=== PATIENT | male | born 1965 | race Caucasian/White ===

== ENCOUNTER 2017-09-10 09:39 | Emergency (ER) | payer MEDICARE ==
[2017-09-10 10:21] VITALS: BP 107/74
--- NOTE | 2017-09-10 10:46 | UC ---
Elbow Pain - HPI Summary HPI Summary: Pt c/o sudden onset of left elbow pain, swelling and serous discharge from left elbow. Pt had left elbow surgery in 2013 with ORIF. - History of Current Complaint Chief Complaint: UCUpperExtremity Stated Complaint: LEFT ELBOW DRAINAGE AND PAIN Time Seen by Provider: 09/10/17 10:12 Hx Obtained From: Patient Onset/Duration: Days Severity Initially: Mild Severity Currently: Moderate Pain Intensity: 8 Location Of Pain: Is Discrete @ - left elbow Character: Dull, Aching Aggravating Factor(s): Movement Alleviating Factor(s): Rest Associated Signs And Symptoms: Positive: Swelling, Redness - Allergies/Home Medications Allergies/Adverse Reactions: Allergies Allergy/AdvReac Type Severity Reaction Status Date / Time No Known Allergies Allergy Verified 09/10/17 10:21 Home Medications: Home Medications Aspirin [Aspirin Childrens 81 MG] 81 mg PO DAILY 09/10/17 [History Confirmed ] Cholecalciferol TAB* [Vitamin D TAB*] 1,000 unit PO DAILY 09/10/17 [History Confirmed 09/10/17] [place]-3 Acid Ethyl Esters [Lovaza] 1 cap PO DAILY 09/10/17 [History Confirmed ] Pravastatin (NF) [Pravachol (NF)] 10 mg PO 1700 09/10/17 [History Confirmed ] PMH/Surg Hx/FS Hx/Imm Hx Previously Healthy: Yes Endocrine History: Dyslipidemia - Surgical History Surgical History: Yes Surgery Procedure, Year, and Place: IVC filter placement. ORIF left forearm - Family History Known Family History: Positive: Cardiac Disease - Social History Lives: With Family Alcohol Use: Occasionally Substance Use Type: None Smoking Status (MU): Heavy Every Day Tobacco Smoker Amount Used/How Often: 10 cigs daily x 40 years Have You Smoked in the Last Year: Yes Review of Systems Constitutional: Negative Skin: Other - erythema Eyes: Negative ENT: Negative Respiratory: Negative Cardiovascular: Negative Gastrointestinal: Negative Genitourinary: Negative Motor: Weakness - left side s/p CVA Neurovascular: Negative Musculoskeletal: Decreased ROM - left upper extremity, Myalgia Neurological: Negative Psychological: Negative Is Patient Immunocompromised?: No All Other Systems Reviewed And Are Negative: Yes Physical Exam Triage Information Reviewed: Yes Appearance: Other: - unkempt Vital Signs: Initial Vital Signs Temp 99.0 F 09/10/17 10:13 Pulse 79 09/10/17 10:13 Resp 14 09/10/17 10:13 BP 107/74 09/10/17 10:13 Pulse Ox 98 09/10/17 10:13 Vital Signs Reviewed: Yes Eye Exam: Normal ENT Exam: Normal Neck exam: Normal Respiratory: Positive: No respiratory distress Musculoskeletal: Positive: ROM Limited @ - left upper extremity, left elbow mild erythema and swelling, with small, opening, draining serous fludi Neurological Exam: Normal Psychological Exam: Normal Skin Exam: Other - lef telbow erythema Diagnostics - Radiology No standard instances Radiology Interpretation Completed By: Radiologist - IMPRESSION: STATUS POST INTERNAL FIXATION OF THE PROXIMAL ULNA. Elbow Pain Course/Dx - Differential Dx/Diagnosis Differential Diagnosis/HQI/PQRI: Bursitis, Infection Provider Diagnoses: bursitis left elbow Discharge - Sign-Out/Discharge Documenting (check all that apply): Discharge/Admit/Transfer - Discharge Plan Condition: Stable Disposition: HOME Prescriptions: Sulfamethox/Trimethoprim DS* [Bactrim DS 800/160 TAB*] 1 tab PO Q12H #20 tab Patient Education Materials: Elbow Bursitis (ED) Referrals: Curtis TRIMBLE,Robb [Primary Care Provider] - Cliff Mondragon [Doctor of Osteopathy] - As Soon As Possible - Billing Disposition and Condition Condition: STABLE Disposition: HOME
--- NOTE | 2017-09-10 11:02 | RAD ---
HISTORY: Left elbow pain, trauma COMPARISONS: None VIEWS: 5, Frontal, lateral, and oblique views of the left elbow FINDINGS: BONE DENSITY: Normal. BONES: The patient is status post internal fixation of the proximal ulna. There is no hardware failure or osteolysis. 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 There is no posterior supracondylar fat pad to suggest a joint effusion. ALIGNMENT: There is no dislocation. SOFT TISSUES: Unremarkable. OTHER FINDINGS: None. IMPRESSION: STATUS POST INTERNAL FIXATION OF THE PROXIMAL ULNA.
--- NOTE | 2017-09-12 07:20 | UC ---
- Progress Note Progress Note: Pt with no oranisms on on micro no growth day #1 on bactrim await final no change Ljj 09/12/2017 Discharge - Sign-Out/Discharge Documenting (check all that apply): Post-Discharge Follow Up - Discharge Plan Condition: Stable Disposition: HOME Prescriptions: Sulfamethox/Trimethoprim DS* [Bactrim DS 800/160 TAB*] 1 tab PO Q12H #20 tab Patient Education Materials: Elbow Bursitis (ED) Referrals: Curtis TRIMBLE,Robb [Primary Care Provider] - Cliff Mondragon [Doctor of Osteopathy] - As Soon As Possible - Billing Disposition and Condition Condition: STABLE Disposition: HOME
== END 2017-09-10 11:20 | disposition home or self-care (01) ==
LOC: UCCORT 09:39
DX: M71.9 Bursopathy, unspecified (principal); F17.210 Nicotine dependence, cigarettes, uncomplicated
CPT/HCPCS: 87070; 87205; 99213; G0463

== ENCOUNTER 2018-09-28 10:07 | Emergency (ER) | payer MEDICARE ==
--- OUTSIDE RECORDS SUMMARY | 2018-09-28 10:17 | XMS REPORT | Continuity of Care Document ---
:1965 External Reference #:[id number] Author Name Praveen Foster MD Address [address] [place] [address] [place] [address] Care Team Providers Name Role Phone Praveen Foster MD Care Team Information Customer Liaison Unavailable Praveen Foster MD Primary Care Physician Unavailable Payers Date Identification Numbers Payment Provider Subscriber Policy Number: [id number] [employer] Adonay Paula PayID: [id number] [address] [place] [address] Advance Directives Description No Information Available Problems Active Problems Provider Date Adult health examination Robb Acevedo M.D. Onset: 08/11/2016 Hyperlipidemia Robb Acevedo M.D. Onset: 08/11/2016 Type 2 diabetes mellitus Robb Acevedo M.D. Onset: 08/11/2016 Cerebrovascular disease Robb Acevedo M.D. Onset: 08/11/2016 Screening for malignant neoplasm of Robb Acevedo M.D. Onset: 08/11/2016 prostate Elevated blood-pressure reading Robb Acevedo M.D. Onset: 08/11/2016 without diagnosis of hypertension Electrocardiogram abnormal Robb Acevedo M.D. Onset: 08/11/2016 Encounter for screening for Robb Acevedo M.D. Onset: 08/11/2016 nutritional disorder Taking medication Robb Acevedo M.D. Onset: 10/02/2016 Contracture of joint of hand Robb Acevedo M.D. Onset: 10/02/2016 Elbow joint effusion Robb Acevedo M.D. Onset: 10/02/2016 Vitamin D deficiency Robb Acevedo M.D. Onset: 10/02/2016 Late effect of fracture of upper Carol Ann Coronado PA Onset: 10/06/2016 extremities Olecranon bursitis Carol Ann Coronado PA Onset: 10/06/2016 Carotid artery occlusion Robb Acevedo M.D. Onset: 10/27/2016 Hemiplegia of nondominant side as late Robb Acevedo M.D. Onset: 10/27/2016 effect of cerebrovascular disease Encounter for adjustment and Robb Acevedo M.D. Onset: 06/18/2017 management of other implanted devices Arthralgia of the upper arm Robb Acevedo M.D. Onset: 09/28/2017 Periostitis of forearm Kim Martínez MD Onset: 11/16/2017 Tobacco user Kim Martínez MD Onset: 11/16/2017 Encounter for other preprocedural Robb Acevedo M.D. Onset: 01/22/2018 examination Preoperative cardiovascular Ed Tijerina M.D., Onset: 02/05/2018 examination [facility] Peripheral vascular disease Ed Tijerina M.D., Onset: 02/05/2018 [facility] Prediabetes Praveen Foster MD Onset: 06/01/2018 Family History Date Family Member(s) Observation Comments Father due to Congestive Heart () - age 82 Failure Mother due to Congestive Heart () - age 64 Failure Social History Type Date Description Comments Sex Unknown Lives With Sister Diet Patient is on a low fat diet Occupation Unemployed Work Status Not Currently Working Hand Dominance Right-handed Tobacco Use Start: Unknown currently smokes 1/2 Pack Daily ETOH Use Currently consumes alcohol socially Recreational Drug Use Denies Drug Use Tobacco Use Start: Unknown Heavy tobacco smoker (more than 10 cigarettes/day) Smoking Status Reviewed: 09/01/18 Heavy tobacco smoker (more than 10 cigarettes/day) Allergies, Adverse Reactions, Alerts Description No Known Drug Allergies Medications Active Medications SIG Qnty Indications Ordering Date Provider Atorvastatin Calcium 1 tab by mouth 90tabs E78.5 Praveen Foster MD 2018 every day as 40mg Tablets directed Vascepa 2 caps by mouth 120caps Praveen Foster MD 06/02/2018 1gm Capsules twice a day before meals Aspir-Low 1 by mouth every 90tabs Robb Acevedo, 10/02/2016 81mg Tablets day M.Bonilla AVILES Vitamin D 1 tab by mouth Unknown (Ergocalciferol) once daily 2000Unit Capsules Tylenol 8 Hour one by mouth Unknown 650mg every 6 hours as Tablets ER needed pain History Medications Keflex 1 by mouth four 30capKim Escobar, 12/09/2017 - 500mg Capsules times a day 01/22/2018 Cephalexin 1 tab by mouth 40tabs Ed Tijerina 11/16/2017 - 500mg every 6 hours M., M.D., [facility] 06/01/2018 Tablet MDD 4 Keflex 1 by mouth 4 28caps Kim Martínez, 10/06/2017 - 500mg Capsules times a day 11/16/2017 Naproxen Sodium ER 1 tab by mouth 20tabs M25.522 Robb Acevedo, 2017 - twice a day for M.D. 10/06/2017 375mg Tablets ER 10 days 24HR Vascepa 1 by mouth 60caps Praveen Foster MD 03/18/2017 - 1gm Capsules twice a day 06/02/2018 Pravastatin Sodium 1 by mouth 90tabs Robb Acevedo, 10/02/2016 - every day M.D. 01/13/2017 20mg Tablets Vascepa 1 capsule by 180Robb Silevira, 10/02/2016 - 0.5gm mouth twice a M.D. 03/18/2017 Capsules day No Active Unknown 08/11/2016 - Medications 10/02/2016 Pravastatin Sodium take 1 tablet 90tabs E78.5 Praveen Foster MD - daily 09/01/2018 20mg Tablets Naproxen Sodium ER 1 tab by mouth 20tabs [place], - twice a day for MS Awilda, 09/01/2018 375mg Tablets ER 10 days [employer]-C, CNM 24HR Immunizations CPT Code Status Date Vaccine Lot # [id number] Given 01/22/2018 Influenza Virus Vaccine, Quadrivalent, 36 Mos+, [id number] Vital Signs Date Vital Result Comment 09/01/2018 9:17am BP Systolic 112 mmHg BP Diastolic 76 mmHg Heart Rate 83 /min Respiratory Rate 18 /min Height 73 inches 6'1" Weight 178.00 lb BMI (Body Mass Index) 23.5 kg/m2 BSA (Body Surface Area) 2.05 m2 [place] body weight in kilograms 83 kg O2 % BldC Oximetry 98 % Ra 06/01/2018 11:02am BP Systolic 114 mmHg BP Diastolic 70 mmHg Heart Rate 65 /min Respiratory Rate 18 /min Height 73 inches 6'1" Weight 188.12 lb BMI (Body Mass Index) 24.8 kg/m2 BSA (Body Surface Area) 2.10 m2 [place] body weight in kilograms 83 kg O2 % BldC Oximetry 97 % Ra 04/07/2018 9:22am BP Systolic Sitting Right Arm 137 mmHg BP Diastolic Sitting Right Arm 93 mmHg Body Temperature 98.3 F Heart Rate 78 /min Respiratory Rate 16 /min Height 73 inches 6'1" Weight 183.00 lb BMI (Body Mass Index) 24.1 kg/m2 BSA (Body Surface Area) 2.07 m2 [place] body weight in kilograms 83 kg O2 % BldC Oximetry 95 % 02/05/2018 1:51pm BP Systolic Sitting Left Arm 136 mmHg BP Diastolic Sitting Left Arm 78 mmHg Heart Rate 71 /min Respiratory Rate 20 /min Weight 183.00 lb O2 % BldC Oximetry 97 % room air 01/22/2018 11:55am BP Systolic 122 mmHg BP Diastolic 79 mmHg Body Temperature 98.0 F Heart Rate 82 /min Respiratory Rate 20 /min Weight 187.00 lb O2 % BldC Oximetry 95 % Ra Pain Level 6 left arm 11/25/2017 1:37pm BP Systolic Sitting Right Arm 135 mmHg BP Diastolic Sitting Right Arm 91 mmHg Body Temperature 97.9 F Heart Rate 77 /min Height 73 inches 6'1" Weight 180.00 lb BMI (Body Mass Index) 23.7 kg/m2 BSA (Body Surface Area) 2.06 m2 [place] body weight in kilograms 83 kg O2 % BldC Oximetry 92 % 11/16/2017 2:05pm BP Systolic Sitting Left Arm 123 mmHg BP Diastolic Sitting Left Arm 79 mmHg Body Temperature 99.0 F Heart Rate 87 /min Respiratory Rate 16 /min Height 73 inches 6'1" Weight 182.12 lb BMI (Body Mass Index) 24.0 kg/m2 BSA (Body Surface Area) 2.07 m2 [place] body weight in kilograms 83 kg O2 % BldC Oximetry 97 % Ra Pain Level 6 LT elbow 10/06/2017 2:41pm BP Systolic Sitting Right Arm 125 mmHg BP Diastolic Sitting Right Arm 85 mmHg Body Temperature 98.4 F Heart Rate 76 /min Respiratory Rate 16 /min Height 73 inches 6'1" Weight 184.00 lb BMI (Body Mass Index) 24.3 kg/m2 BSA (Body Surface Area) 2.08 m2 [place] body weight in kilograms 83 kg O2 % BldC Oximetry 98 % 09/28/2017 11:35am BP Systolic 150 mmHg BP Diastolic 99 mmHg Body Temperature 96.6 F Heart Rate 73 /min Respiratory Rate 20 /min Height 73 inches 6'1" Weight 181.06 lb BMI (Body Mass Index) 23.9 kg/m2 BSA (Body Surface Area) 2.06 m2 [place] body weight in kilograms 83 kg O2 % BldC Oximetry 94 % 06/18/2017 9:21am BP Systolic Sitting Right Arm 107 mmHg BP Diastolic Sitting Right Arm 78 mmHg Heart Rate 97 /min Respiratory Rate 90 /min Height 73 inches 6'1" Weight 186.00 lb BMI (Body Mass Index) 24.5 kg/m2 BSA (Body Surface Area) 2.09 m2 [place] body weight in kilograms 83 kg 03/18/2017 2:19pm BP Systolic 139 mmHg BP Diastolic 94 mmHg Heart Rate 80 /min Respiratory Rate 12 /min Height 73 inches 6'1" Weight 179.50 lb BMI (Body Mass Index) 23.7 kg/m2 BSA (Body Surface Area) 2.05 m2 [place] body weight in kilograms 83 kg O2 % BldC Oximetry 95 % 01/13/2017 11:18am BP Systolic 135 mmHg BP Diastolic 87 mmHg Heart Rate 78 /min Respiratory Rate 16 /min Height 73 inches 6'1" Weight 170.38 lb BMI (Body Mass Index) 22.5 kg/m2 BSA (Body Surface Area) 2.01 m2 [place] body weight in kilograms 83 kg O2 % BldC Oximetry 93 % 11/06/2016 11:34am BP Systolic 139 mmHg BP Diastolic 95 mmHg Heart Rate 72 /min Respiratory Rate 12 /min Height 73 inches 6'1" Weight 176.00 lb BMI (Body Mass Index) 23.2 kg/m2 BSA (Body Surface Area) 2.04 m2 [place] body weight in kilograms 83 kg O2 % BldC Oximetry 95 % 10/27/2016 9:23am BP Systolic 129 mmHg BP Diastolic 83 mmHg Heart Rate 92 /min Height 73 inches 6'1" Weight 175.00 lb BMI (Body Mass Index) 23.1 kg/m2 BSA (Body Surface Area) 2.03 m2 [place] body weight in kilograms 83 kg 10/06/2016 9:56am Heart Rate 98 /min Height 73 inches 6'1" Weight 179.00 lb BMI (Body Mass Index) 23.6 kg/m2 BSA (Body Surface Area) 2.05 m2 [place] body weight in kilograms 83 kg 10/02/2016 9:46am BP Systolic 126 mmHg BP Diastolic 82 mmHg Heart Rate 90 /min Respiratory Rate 16 /min Height 72.5 inches 6'0.50" Weight 178.00 lb BMI (Body Mass Index) 23.8 kg/m2 BSA (Body Surface Area) 2.04 m2 [place] body weight in kilograms 82 kg O2 % BldC Oximetry 97 % 08/11/2016 1:00pm BP Systolic 149 mmHg BP Diastolic 99 mmHg Heart Rate 84 /min Respiratory Rate 16 /min Height 72.5 inches 6'0.50" Weight 182.00 lb BMI (Body Mass Index) 24.3 kg/m2 BSA (Body Surface Area) 2.06 m2 [place] body weight in kilograms 82 kg O2 % BldC Oximetry 97 % Results Test Date Facility Test Result H/L Range Note T7/TSH 06/01/[address] T3 Uptake 30 % Low 31-39 1 [address] [place] [address] [phone] Thyroxine (T4) 7.3 g/dL N 4.7-13.3 T7 2.19 g/dL Low 5.0-12.0 Thyroid Stim Hormone 0.95 uIU/mL N 0.30-4.20 Glycohemoglobin A1c 06/01/[address] Glycohemoglobin 6.1 % N 4.2-6.3 2 4077 [facility] (A1c) [place], [place] [id number] [phone] eAG 128 mg/dL LDL Cholesterol 06/01/[address] Cholesterol 207 mg/dL High < 200 3 Profile [address] [place], [place] [id number] [phone] Triglycerides 431 mg/dL High <150 4 HDL Cholesterol 30 mg/dL Low >40 5 LDL-Cholesterol TNP mg/dL < 100 6 Comprehensive Metabolic 06/01/[address] [facility] [address] Glucose 103 mg/dL N 74-106 Panel [address] [place] [address] [phone] BUN 18 mg/dL N 7-18 Creatinine 1.3 mg/dL N 0.6-1.3 Glom Filtration Rate, Estimate >60 mL/min >60 If >60 mL/min >60 7 BUN/Creat 13.8 ratio Sodium 138 mmol/L N 136-145 Potassium 4.1 mmol/L N 3.5-5.1 Chloride 111 mmol/L High 98-107 Carbon Dioxide 24 mmol/L N 21-32 Anion Gap 3 mEq/L Low 8-16 Calcium 8.7 mg/dL N 8.5-10.1 Total Protein 8.0 g/dL N 6.4-8.2 Albumin 3.9 g/dL N 3.4-5.0 Globulin 4.1 g/dL N 1.9-4.3 Alb/Glob 1.0 ratio Bilirubin,Total 0.4 mg/dL N 0.2-1.0 Sgot/Ast 17 U/L N 15-37 SGPT/Alt 28 U/L N 12-78 Alkaline Phosphatase 66 U/L N 45-117 CBC W/Automated Diff 06/01/[address] White Blood 7.7 K/uL N 3.4-10.5 [address] [facility] [place] [address] [phone] Red Blood Count 5.39 M/uL N 4.20-5.80 Hemoglobin 16.8 gm/dL N 12.8-17.0 Hematocrit 49.7 % High 38.0-48.0 Mean Cell Volume 92.2 fl N 80.0-96.0 Mean Corpuscular HGB 31.2 pg N 27.0-33.0 Mean Corpuscular HGB Conc 33.8 g/dL N 31.7-36.0 Platelet Count 220 K/uL N 155-360 Red Cell Distri Width SD 43.3 fl N 36-51 Red Cell Distri Width %CV 12.9 % N 11.6-15.8 Mean Platelet Volume 10.3 fL N 6.6-10.6 Neut% 58.3 % N 33.0-73.0 Lymph % 30.4 % N 20.0-42.0 [place] % 7.3 % N 0.0-10.0 Eo% 3.5 % N 0.0-6.6 Bas% 0.5 % N 0.0-1.1 Neut# 4.50 K/uL N 1.8-7.0 Lymph # 2.35 K/uL N 1.0-4.0 [place] # 0.56 K/uL N 0.0-0.8 Eos # 0.27 K/uL N 0.0-0.5 Baso # 0.04 K/uL N 0.0-0.1 Basic Metabolic Panel 04/16/2018 [facility] Glucose 93 mg/dL N 74-[address] [place] [address] [phone] BUN 15 mg/dL N 7-18 Creatinine 1.2 mg/dL N 0.6-1.3 Glom Filtration Rate, Estimate >60 mL/min >60 If >60 mL/min >60 9 BUN/Creat 12.5 ratio Sodium 139 mmol/L N 136-145 Potassium 3.8 mmol/L N 3.5-5.1 Chloride 107 mmol/L N 98-107 Carbon Dioxide 23 mmol/L N 21-32 Anion Gap 9 mEq/L N 8-16 Calcium 9.1 mg/dL N 8.5-10.1 CBC W/Automated Diff 04/16/2018 [facility] White Blood 8.1 K/uL N 3.4-10.[address] [place] [address] [phone] Red Blood Count 5.46 M/uL N 4.20-5.80 Hemoglobin 17.4 gm/dL High 12.8-17.0 Hematocrit 50.7 % High 38.0-48.0 Mean Cell Volume 92.9 fl N 80.0-96.0 Mean Corpuscular HGB 31.9 pg N 27.0-33.0 Mean Corpuscular HGB Conc 34.3 g/dL N 31.7-36.0 Platelet Count 224 K/uL N 155-360 Red Cell Distri Width SD 42.9 fl N 36-51 Red Cell Distri Width %CV 12.7 % N 11.6-15.8 Mean Platelet Volume 9.4 fL N 6.6-10.6 Neut% 58.5 % N 33.0-73.0 Lymph % 30.4 % N 20.0-42.0 [place] % 6.8 % N 0.0-10.0 Eo% 3.7 % N 0.0-6.6 Bas% 0.6 % N 0.0-1.1 Neut# 4.72 K/uL N 1.8-7.0 Lymph # 2.46 K/uL N 1.0-4.0 [place] # 0.55 K/uL N 0.0-0.8 Eos # 0.30 K/uL N 0.0-0.5 Baso # 0.05 K/uL N 0.0-0.1 Anticoagulant Therapy? YES Date of Last Dose: [id number] Time of Last Dose: 0900 Protime 04/16/2018 [facility] Protime 12.9 seconds N 12.0-14.4 [address] [place], [place] [id number] [phone] Inr 1.0 N 0.9-1.1 10 Anticoagulant Therapy? YES Date of Last Dose: [id number] Time of Last Dose: 0900 Act Partial 04/16/2018 [facility] Act Partial 26.4 seconds N 23.4-35.[address] [place] [place] [address] [phone] Anticoagulant Therapy? YES Date of Last Dose: [id number] Time of Last Dose: 0900 Comprehensive Metabolic 01/22/2018 [facility] Glucose 96 mg/dL N 74-106 11 Panel [address] [place] [address] [phone] BUN 15 mg/dL N 7-18 Creatinine 1.0 mg/dL N 0.6-1.3 Glom Filtration Rate, Estimate >60 mL/min >60 If >60 mL/min >60 12 BUN/Creat 15.0 ratio Sodium 142 mmol/L N 136-145 Potassium 4.4 mmol/L N 3.5-5.1 Chloride 111 mmol/L High 98-107 Carbon Dioxide 24 mmol/L N 21-32 Anion Gap 7 mEq/L Low 8-16 Calcium 8.5 mg/dL N 8.5-10.1 Total Protein 7.5 g/dL N 6.4-8.2 Albumin 3.8 g/dL N 3.4-5.0 Globulin 3.7 g/dL N 1.9-4.3 Alb/Glob 1.0 ratio Bilirubin,Total 0.3 mg/dL N 0.2-1.0 Sgot/Ast 17 U/L N 15-37 SGPT/Alt 28 U/L N 12-78 Alkaline Phosphatase 60 U/L N 45-117 CBC W/Automated Diff 01/22/2018 [facility] White Blood 7.9 K/uL N 3.4-10.[address] [place] [address] [phone] Red Blood Count 5.10 M/uL N 4.20-5.80 Hemoglobin 16.5 gm/dL N 12.8-17.0 Hematocrit 47.8 % N 38.0-48.0 Mean Cell Volume 93.7 fl N 80.0-96.0 Mean Corpuscular HGB 32.4 pg N 27.0-33.0 Mean Corpuscular HGB Conc 34.5 g/dL N 31.7-36.0 Platelet Count 276 K/uL N 155-360 Red Cell Distri Width SD 45.4 fl N 36-51 Red Cell Distri Width %CV 13.6 % N 11.6-15.8 Mean Platelet Volume 10.2 fL N 6.6-10.6 Neut% 64.2 % N 33.0-73.0 Lymph % 26.0 % N 20.0-42.0 [place] % 5.7 % N 0.0-10.0 Eo% 3.5 % N 0.0-6.6 Bas% 0.6 % N 0.0-1.1 Neut# 5.06 K/uL N 1.8-7.0 Lymph # 2.05 K/uL N 1.0-4.0 [place] # 0.45 K/uL N 0.0-0.8 Eos # 0.28 K/uL N 0.0-0.5 Baso # 0.05 K/uL N 0.0-0.1 Protime 01/22/2018 [facility] Protime 12.3 seconds N 12.0-14.4 [address] [place] [address] [phone] Inr 0.9 N 0.9-1.1 13 Laboratory test 01/22/2018 [facility] Act Partial 29.0 seconds N 23.4-35.0 [address] [place] [address] [phone] CBS W/Automated 11/23/2017 [facility] White Blood 7.9 K/uL N 3.4-10.5 [address] [place] [address] [phone] Red Blood Count 5.23 M/uL N 4.20-5.80 Hemoglobin 16.5 gm/dL N 12.8-17.0 Hematocrit 47.5 % N 38.0-48.0 Mean Cell Volume 90.8 fl N 80.0-96.0 Mean Corpuscular HGB 31.5 pg N 27.0-33.0 Mean Corpuscular HGB Conc 34.7 g/dL N 31.7-36.0 Platelet Count 235 K/uL N 155-360 Red Cell Distri Width SD 42.9 fl N 36-51 Red Cell Distri Width %CV 12.9 % N 11.6-15.8 Mean Platelet Volume 9.3 fL N 6.6-10.6 Neut% 61.4 % N 33.0-73.0 Lymph % 24.7 % N 20.0-42.0 [place] % 7.2 % N 0.0-10.0 Eo% 6.2 % N 0.0-6.6 Bas% 0.5 % N 0.0-1.1 Neut# 4.86 K/uL N 1.8-7.0 Lymph # 1.96 K/uL N 1.0-4.0 [place] # 0.57 K/uL N 0.0-0.8 Eos # 0.49 K/uL N 0.0-0.5 Baso # 0.04 K/uL N 0.0-0.1 Laboratory test 11/23/2017 [facility] Sedimentation Rate 2 mm/hr N 0-20 16 finding [address] [place] [address] [phone] C-Reactive Protein,Quant < 2.9 mg/L <3.0 LDL Cholesterol 10/13/2017 [facility] Cholesterol 194 mg/dL <200 17, 18 Profile [address] [place] [address] [phone] Triglycerides 270 mg/dL High <150 19 HDL Cholesterol 28 mg/dL Low >40 20 LDL-Cholesterol 112 mg/dL < 100 21 Laboratory test 10/13/2017 [facility] Vitamin 36.1 30.0-100.0 [address] D,25-Hydroxy ng/[place] [address] [phone] CBS W/Automated 10/13/2017 [facility] White Blood 8.4 K/uL N 3.4-10.[address] [place] [address] [phone] Red Blood Count 4.99 M/uL N 4.20-5.80 Hemoglobin 15.9 gm/dL N 12.8-17.0 Hematocrit 47.0 % N 38.0-48.0 Mean Cell Volume 94.2 fl N 80.0-96.0 Mean Corpuscular HGB 31.9 pg N 27.0-33.0 Mean Corpuscular HGB Conc 33.8 g/dL N 31.7-36.0 Platelet Count 247 K/uL N 155-360 Red Cell Distri Width SD 43.6 fl N 36-51 Red Cell Distri Width %CV 13.1 % N 11.6-15.8 Mean Platelet Volume 10.4 fL N 6.6-10.6 Neut% 63.3 % N 33.0-73.0 Lymph % 23.7 % N 20.0-42.0 [place] % 7.6 % N 0.0-10.0 Eo% 4.8 % N 0.0-6.6 Bas% 0.6 % N 0.0-1.1 Neut# 5.30 K/uL N 1.8-7.0 Lymph # 1.99 K/uL N 1.0-4.0 [place] # 0.64 K/uL N 0.0-0.8 Eos # 0.40 K/uL N 0.0-0.5 Baso # 0.05 K/uL N 0.0-0.1 Comprehensive Metabolic 10/13/2017 [facility] Glucose 96 mg/dL N 74-[address] [place] [address] [phone] BUN 22 mg/dL High 7-18 Creatinine 1.1 mg/dL N 0.6-1.3 Glom Filtration Rate, Estimate >60 mL/min >60 If >60 mL/min >60 23 BUN/Creat 20.0 ratio Sodium 141 mmol/L N 136-145 Potassium 4.2 mmol/L N 3.5-5.1 Chloride 113 mmol/L High 98-107 Carbon Dioxide 21 mmol/L N 21-32 Anion Gap 7 mEq/L Low 8-16 Calcium 8.4 mg/dL Low 8.5-10.1 Total Protein 7.4 g/dL N 6.4-8.2 Albumin 3.9 g/dL N 3.4-5.0 Globulin 3.5 g/dL N 1.9-4.3 Alb/Glob 1.1 ratio Bilirubin,Total 0.2 mg/dL N 0.2-1.0 Sgot/Ast 15 U/L N 15-37 SGPT/Alt 30 U/L N 12-78 Alkaline Phosphatase 64 U/L N 45-117 Laboratory test 10/13/2017 [facility] CK 121 U/L N 39-[address] [place], [place] [id number] [phone] Wound 09/10/2017 [facility] Wound/Misc SEE RESULT 24, 25 Culture/Sensi [phone] Culture-Gr BELOW am Stain Direct LDL 06/18/2017 [facility] LDL Chol. 139 mg/dL High 0-99 [address] (Direct) [place], [place] [id number] [phone] Comment (SEE NOTE) 27 Laboratory test 06/18/2017 [facility] HDL Cholesterol 36 mg/dL Low >40 [address] [place], [place] [id number] [phone] Triglycerides 329 mg/dL High <150 29 CBS W/Automated Diff 06/18/2017 [facility] White Blood 7.8 K/uL N 3.4-10.[address] Count [place], [place] [id number] [phone] Red Blood Count 5.38 M/uL N 4.20-5.80 Hemoglobin 17.3 gm/dL High 12.8-17.0 Hematocrit 50.0 % High 38.0-48.0 Mean Cell Volume 92.9 fl N 80.0-96.0 Mean Corpuscular HGB 32.2 pg N 27.0-33.0 Mean Corpuscular HGB Conc 34.6 g/dL N 31.7-36.0 Platelet Count 265 K/uL N 155-360 Red Cell Distri Width SD 43.4 fl N 36-51 Red Cell Distri Width %CV 13.0 % N 11.6-15.8 Mean Platelet Volume 10.3 fL N 6.6-10.6 Neut% 64.2 % N 33.0-73.0 Lymph % 23.4 % N 20.0-42.0 [place] % 7.5 % N 0.0-10.0 Eo% 4.1 % N 0.0-6.6 Bas% 0.8 % N 0.0-1.1 Neut# 5.00 K/uL N 1.8-7.0 Lymph # 1.82 K/uL N 1.0-4.0 [place] # 0.58 K/uL N 0.0-0.8 Eos # 0.32 K/uL N 0.0-0.5 Baso # 0.06 K/uL N 0.0-0.1 Comprehensive Metabolic 06/18/2017 [facility] Glucose 93 mg/dL N 74-106 Panel [address] [place] [address] [phone] BUN 17 mg/dL N 7-18 Creatinine 1.1 mg/dL N 0.6-1.3 Glom Filtration Rate, Estimate >60 mL/min >60 If >60 mL/min >60 30 BUN/Creat 15.4 ratio Sodium 142 mmol/L N 136-145 Potassium 4.8 mmol/L N 3.5-5.1 Chloride 109 mmol/L High 98-107 Carbon Dioxide 27 mmol/L N 21-32 Anion Gap 6 mEq/L Low 8-16 Calcium 9.2 mg/dL N 8.5-10.1 Total Protein 8.0 g/dL N 6.4-8.2 Albumin 4.1 g/dL N 3.4-5.0 Globulin 3.9 g/dL N 1.9-4.3 Alb/Glob 1.1 ratio Bilirubin,Total 0.4 mg/dL N 0.2-1.0 Sgot/Ast 24 U/L N 15-37 SGPT/Alt 32 U/L N 12-78 Alkaline Phosphatase 70 U/L N 45-117 Laboratory test 06/18/2017 [facility] Magnesium 2.3 mg/dL N 1.8-2.4 finding [address] [place] [address] [phone] Ua RFX Micro & 06/18/2017 [facility] Urine Color YELLOW Yellow Culture II [address] [place] [address] [phone] Urine Clarity CLEAR Clear Urine Glucose - Dipstick NEGATIVE mg/dL Negative Urine Bilirubin - Dipstick NEGATIVE Negative Urine Ketone NEGATIVE mg/dL Negative Urine Specific [place] 1.015 N 1.010-1.030 Urine Blood TRACE Negative Urine PH 6.0 Low 6.5-7.5 Urine Protein - Dipstick NEGATIVE mg/dL Negative Urine Urobilinogen - Dipstick 0.2 E.U./dL N 0.2-1.0 Urine Nitrite - Dipstick NEGATIVE Negative Urine Leuk Esterase NEGATIVE Negative Source: URINE, CLEAN CAT <SEE NOTE> 31 Laboratory test finding 06/18/2017 [facility] CK 128 U/L N 39-308 [address] [place] [address] [phone] Vitamin D,25-Hydroxy 35.9 ng/mL 30.0-100.0 32 LDL Cholesterol 03/10/2017 [facility] Cholesterol 215 mg/dL High <200 33 Profile [address] [place] [address] [phone] Triglycerides 270 mg/dL High <150 34 HDL Cholesterol 33 mg/dL Low >40 35 LDL-Cholesterol 128 mg/dL < 100 36 Reflex add FT3? Y Reflex add FT4? Y TSH Reflex FT4 03/10/2017 [facility] Thyroid Stim 0.77 uIU/mL N 0.30-4.20 And/Or FT3 [address] [place] [address] [phone] Reflex add FT3? Y Reflex add FT4? Y CBS W/Automated Diff 03/10/2017 [facility] White Blood 8.9 K/uL N 3.4-10.5 [address] [facility] [place] [address] [phone] Red Blood Count 5.60 M/uL N 4.20-5.80 Hemoglobin 17.3 gm/dL High 12.8-17.0 Hematocrit 51.7 % High 38.0-48.0 Mean Cell Volume 92.3 fl N 80.0-96.0 Mean Corpuscular HGB 30.9 pg N 27.0-33.0 Mean Corpuscular HGB Conc 33.5 g/dL N 31.7-36.0 Platelet Count 255 K/uL N 150-400 Red Cell Distri Width SD 44.9 fl N 36-51 Red Cell Distri Width %CV 13.3 % N 11.6-15.8 Mean Platelet Volume 10.2 fL N 6.6-10.6 Neut% 62.9 % N 33.0-73.0 Lymph % 25.5 % N 20.0-42.0 [place] % 6.9 % N 0.0-10.0 Eo% 4.1 % N 0.0-6.6 Bas% 0.6 % N 0.0-1.1 Neut# 5.59 K/uL N 1.8-7.0 Lymph # 2.26 K/uL N 1.0-4.0 [place] # 0.61 K/uL N 0.0-0.8 Eos # 0.36 K/uL N 0.0-0.5 Baso # 0.05 K/uL N 0.0-0.1 Comprehensive Metabolic 03/10/2017 [facility] Glucose 82 mg/dL N 74-106 Panel [address] [place] [address] [phone] BUN 16 mg/dL N 7-18 Creatinine 1.1 mg/dL N 0.6-1.3 Glom Filtration Rate, Estimate >60 mL/min >60 If >60 mL/min >60 37 BUN/Creat 14.5 ratio Sodium 141 mmol/L N 136-145 Potassium 4.5 mmol/L N 3.5-5.1 Chloride 109 mmol/L High 98-107 Carbon Dioxide 25 mmol/L N 21-32 Anion Gap 7 mEq/L Low 8-16 Calcium 9.2 mg/dL N 8.5-10.1 Total Protein 7.6 g/dL N 6.4-8.2 Albumin 3.9 g/dL N 3.4-5.0 Globulin 3.7 g/dL N 1.9-4.3 Alb/Glob 1.1 ratio Bilirubin,Total 0.4 mg/dL N 0.2-1.0 Sgot/Ast 11 U/L Low 15-37 38 SGPT/Alt 27 U/L N 12-78 Alkaline Phosphatase 61 U/L N 45-117 Reflex add FT3? Y Reflex add FT4? Y CK 03/10/2017 [facility] CK 109 U/L N 39-[address] [place] [address] [phone] Reflex add FT3? Y Reflex add FT4? Y Laboratory test 03/10/2017 [facility] Vitamin 48.3 30.0-100.0 [address] D,25-Hydroxy ng/[place] [address] [phone] CBS W/Automated 11/06/2016 [facility] White Blood 8.4 K/uL N 3.4-10.5 [address] [place] [address] [phone] Red Blood Count 5.31 M/uL N 4.20-5.80 Hemoglobin 16.9 gm/dL N 12.8-17.0 Hematocrit 49.3 % High 38.0-48.0 Mean Cell Volume 92.8 fl N 80.0-96.0 Mean Corpuscular HGB 31.8 pg N 27.0-33.0 Mean Corpuscular HGB Conc 34.3 g/dL N 31.7-36.0 Platelet Count 255 K/uL N 150-400 Red Cell Distri Width SD 44.1 fl N 36-51 Red Cell Distri Width %CV 13.2 % N 11.6-15.8 Mean Platelet Volume 10.3 fL N 6.6-10.6 Neut% 65.3 % N 33.0-73.0 Lymph % 25.0 % N 20.0-42.0 [place] % 5.6 % N 0.0-10.0 Eo% 3.7 % N 0.0-6.6 Bas% 0.4 % N 0.0-1.1 Neut# 5.46 K/uL N 1.8-7.0 Lymph # 2.09 K/uL N 1.0-4.0 [place] # 0.47 K/uL N 0.0-0.8 Eos # 0.31 K/uL N 0.0-0.5 Baso # 0.03 K/uL N 0.0-0.1 HDL Cholesterol 08/19/2016 [facility] HDL Cholesterol 29 mg/dL Low >40 41, [address] [place] [address] [phone] Reflex add FT3? Y Reflex add FT4? Y Direct LDL 08/19/2016 [facility] LDL Chol. 177 mg/dL High 0-99 [address] (Direct) [place] [address] [phone] Triglycerides 08/19/2016 [facility] Triglycerides 339 mg/dL High <[address] [place] [address] [phone] Reflex add FT3? Y Reflex add FT4? Y TSH Reflex FT4 08/19/2016 [facility] Thyroid Stim 0.93 uIU/mL N 0.30-4.20 And/Or FT3 [address] [place] [address] [phone] Reflex add FT3? Y Reflex add FT4? Y Glycohemoglobin A1c 08/19/2016 [facility] Glycohemoglobin 6.0 % N 4.2-6.[address] (A1c) [place] [address] [phone] eAG 126 mg/dL Homocyst(E)Ine, 08/19/2016 [facility] Homocyst(e)ine, 12.1 0.0-15.0 46 P/S [address] P/S umol/L [place] [id number] [phone] Prostate Specific 08/19/2016 [facility] PSA ([place] Loci) 0.69 < 4.0 [address] ng/[place] [address] [phone] Reflex add FT3? Y Reflex add FT4? Y Magnesium 08/19/2016 [facility] Magnesium 2.3 mg/dL N 1.8-2.[address] [place] [address] [phone] Reflex add FT3? Y Reflex add FT4? Y Laboratory test 08/19/2016 [facility] Vitamin 25.4 Low 30.0-100.0 [address] D,25-Hydroxy ng/[place] [address] [phone] Comprehensive 08/19/2016 [facility] Glucose 100 N 74-106 Metabolic Panel [address] mg/[place] [address] [phone] BUN 16 mg/dL N 7-18 Creatinine 1.2 mg/dL N 0.6-1.3 Glom Filtration Rate, Estimate >60 mL/min >60 If >60 mL/min >60 49 BUN/Creat 13.3 ratio Sodium 141 mmol/L N 136-145 Potassium 4.1 mmol/L N 3.5-5.1 Chloride 109 mmol/L High 98-107 Carbon Dioxide 27 mmol/L N 21-32 Anion Gap 5 mEq/L Low 8-16 Calcium 9.0 mg/dL N 8.5-10.1 Total Protein 8.1 g/dL N 6.4-8.2 Albumin 4.1 g/dL N 3.4-5.0 Globulin 4.0 g/dL N 1.9-4.3 Alb/Glob 1.0 ratio Bilirubin,Total 0.5 mg/dL N 0.2-1.0 Sgot/Ast 15 U/L N 15-37 SGPT/Alt 26 U/L N 12-78 Alkaline Phosphatase 64 U/L N 45-117 Reflex add FT3? Y Reflex add FT4? Y CBS W/Automated Diff 08/19/2016 [facility] White Blood 9.5 K/uL N 3.4-10.[address] [place] [address] [phone] Red Blood Count 5.61 M/uL N 4.20-5.80 Hemoglobin 17.6 gm/dL High 12.8-17.0 Hematocrit 51.8 % High 38.0-48.0 Mean Cell Volume 92.3 fl N 80.0-96.0 Mean Corpuscular HGB 31.4 pg N 27.0-33.0 Mean Corpuscular HGB Conc 34.0 g/dL N 31.7-36.0 Platelet Count 256 K/uL N 150-400 Red Cell Distri Width SD 43.6 fl N 36-51 Red Cell Distri Width %CV 13.1 % N 11.6-15.8 Mean Platelet Volume 10.3 fL N 6.6-10.6 Neut% 69.6 % N 33.0-73.0 Lymph % 20.4 % N 20.0-42.0 [place] % 6.6 % N 0.0-10.0 Eo% 3.0 % N 0.0-6.6 Bas% 0.4 % N 0.0-1.1 Neut# 6.63 K/uL N 1.8-7.0 Lymph # 1.95 K/uL N 1.0-4.0 [place] # 0.63 K/uL N 0.0-0.8 Eos # 0.29 K/uL N 0.0-0.5 Baso # 0.04 K/uL N 0.0-0.1 1 Z13.6 2 Elevated levels of HbA1c suggest the need for more aggressive treatment of glycemia. The [place] [employer] recommends that a primary goal of therapy should be a HbA1c of <7% and that physicians should re-evaluate the treatment regimen in patients with HbA1c values consistently >8%. 3 Reference Guidelines*: Desirable: ........... < 200 mg/dL Borderline High: ..... 200-239 mg/dL High: ................ >=240 mg/dL * The National Cholesterol Education Program (NCEP) 4 Reference Guidelines*: Normal: ............. < 150 mg/dL Borderline High: .... 150-199 mg/dL High: ............... 200-499 mg/dL Very High: .......... > 500 mg/dL * Source: National Cholesterol Education Program (NCEP) 5 Reference Guidelines*: Low HDL: ..... < 40 mg/dL Normal: ..... 40-60 mg/dL Desirable: ... > 60 mg/dL *The National Cholesterol Education Program(NCEP) 6 (LDL CANNOT BE CALCULATED FOR TRIGS >400 mg/dL) 7 Note: Persistent reduction for 3 months or more in an eGFR <60 mL/min/1.73 m2 defines CKD. Patients with eGFR values >/=60 mL/min/1.73 m2 may also have CKD if evidence of persistent proteinuria is present. The original MDRD equation for estimated GFR is not valid for patients less than 18 years of age. Additional information may be found at www.kdoqi.org. 8 Z01.818 9 Note: Persistent reduction for 3 months or more in an eGFR <60 mL/min/1.73 m2 defines CKD. Patients with eGFR values >/=60 mL/min/1.73 m2 may also have CKD if evidence of persistent proteinuria is present. The original MDRD equation for estimated GFR is not valid for patients less than 18 years of age. Additional information may be found at www.kdoqi.org. 10 THERAPEUTIC INR RANGE: 2.0 - 3.0 DVT, Pulmonary embolus, prophylaxis against venous thrombosis or systemic embolization in high risk patients. 2.5 - 3.5 Mechanical heart valves 11 Z79.899 12 Note: Persistent reduction for 3 months or more in an eGFR <60 mL/min/1.73 m2 defines CKD. Patients with eGFR values >/=60 mL/min/1.73 m2 may also have CKD if evidence of persistent proteinuria is present. The original MDRD equation for estimated GFR is not valid for patients less than 18 years of age. Additional information may be found at www.kdoqi.org. 13 THERAPEUTIC INR RANGE: 2.0 - 3.0 DVT, Pulmonary embolus, prophylaxis against venous thrombosis or systemic embolization in high risk patients. 2.5 - 3.5 Mechanical heart valves 14 Is patient on heparin protocol? N Is patient on anticoagulants? None 15 M25.521 16 Method: Sediplast Modified [place] 17 E78.5 E55.9 Z79.899 18 Reference Guidelines*: Desirable: ........... < 200 mg/dL Borderline High: ..... 200-239 mg/dL High: ................ >=240 mg/dL * The National Cholesterol Education Program (NCEP) 19 Reference Guidelines*: Normal: ............. < 150 mg/dL Borderline High: .... 150-199 mg/dL High: ............... 200-499 mg/dL Very High: .......... > 500 mg/dL * Source: National Cholesterol Education Program (NCEP) 20 Reference Guidelines*: Low HDL: ..... < 40 mg/dL Normal: ..... 40-60 mg/dL Desirable: ... > 60 mg/dL *The National Cholesterol Education Program(NCEP) 21 Reference Guidelines*: Optimal:........... <100 mg/dL Near Optimal....... 100-129 mg/dL Borderline High.... 130-159 mg/dL High............... 160-189 mg/dL Very High.......... >=190 mg/dL * Source: National Cholesterol Education Program (NCEP) 22 Vitamin D deficiency has been defined by the [place] of [place] and an Endocrine Society practice guideline as a level of serum 25-OH vitamin D less than 20 ng/mL (1,2). The Endocrine Society went on to further define vitamin D insufficiency as a level between 21 and 29 ng/mL (2). 1. IOM ([place] of [employer]). 2010. Dietary reference intakes for calcium and D. [place]: The National Academies Press. 2. Crow MF, Michael NC, Danny FRENCH, et al. Evaluation, treatment, and prevention of vitamin D deficiency: an Endocrine Society clinical practice guideline. JCEM. 2010; 96(7):1911-30. Performed at: RN - [facility] [address] [id number] Management Sme: Jenni Hoyt MD, Phone: [phone] 23 Note: Persistent reduction for 3 months or more in an eGFR <60 mL/min/1.73 m2 defines CKD. Patients with eGFR values >/=60 mL/min/1.73 m2 may also have CKD if evidence of persistent proteinuria is present. The original MDRD equation for estimated GFR is not valid for patients less than 18 years of age. Additional information may be found at www.kdoqi.org. 24 [id number] 25 SEE RESULT BELOW Name: ADONAY PAULA : [address]: John Rodríguez MD Acct: [id number] Unit: [id number] AGE: 52 Location: [facility] Re09/10/17 SEX: M Status: DEP ER SPEC: [id number] ERMIAS: 09/10/17-[address] [facility] [address]: Anika Tong NP REQ: [id number] RECD: 09/10/17-1355 STATUS: COMP OTHR DR: Robb Rodríguez MD _ SOURCE: ELBOW,LEFT SPDESC: ORDERED: Culture Stain COMMENTS: [id number] Procedure Result Reported Site Wound/Misc Gram Stain Final 09/10/17- 1508 ML 2+ Epithelial Cells 2+ Neutrophils No Organisms Seen Wound/Misc Culture Final 09/12/17- 0924 ML No Growth Day 2 * ML - Main Lab . END OF REPORT DEPARTMENT OF PATHOLOGY, [address] [place] [address] Fazal Garrison M.D. Director [facility] # [id number] 26 E78.5 Z79.899 E55.9 27 Performed at: RN - [facility] [address] [id number] Management Sme: Jenni Hoyt MD, Phone: [phone] 28 Reference Guidelines*: Low HDL: ..... < 40 mg/dL Normal: ..... 40-60 mg/dL Desirable: ... > 60 mg/dL *The National Cholesterol Education Program(NCEP) 29 Reference Guidelines*: Normal: ............. < 150 mg/dL Borderline High: .... 150-199 mg/dL High: ............... 200-499 mg/dL Very High: .......... > 500 mg/dL * Source: National Cholesterol Education Program (NCEP) 30 Note: Persistent reduction for 3 months or more in an eGFR <60 mL/min/1.73 m2 defines CKD. Patients with eGFR values >/=60 mL/min/1.73 m2 may also have CKD if evidence of persistent proteinuria is present. The original MDRD equation for estimated GFR is not valid for patients less than 18 years of age. Additional information may be found at www.kdoqi.org. 31 URINE, CLEAN CATCH 32 Vitamin D deficiency has been defined by the [place] [employer] [place] and an Endocrine Society practice guideline as a level of serum 25-OH vitamin D less than 20 ng/mL (1,2). The Endocrine Society went on to further define vitamin D insufficiency as a level between 21 and 29 ng/mL (2). 1. IOM ([place]). 2010. Dietary reference intakes for calcium and D. [place]: The National Academies Press. 2. Crow MF, Michael NC, Danny FRENCH, et al. Evaluation, treatment, and prevention of vitamin D deficiency: an Endocrine Society clinical practice guideline. JCEM. 2010; 96(7):1911-30. Performed at: RN - [facility] [address] [id number] Management Sme: Jenni Hoyt MD, Phone: [phone] 33 Reference Guidelines*: Desirable: ........... < 200 mg/dL Borderline High: ..... 200-239 mg/dL High: ................ >=240 mg/dL * The National Cholesterol Education Program (NCEP) 34 Reference Guidelines*: Normal: ............. < 150 mg/dL Borderline High: .... 150-199 mg/dL High: ............... 200-499 mg/dL Very High: .......... > 500 mg/dL * Source: National Cholesterol Education Program (NCEP) 35 Reference Guidelines*: Low HDL: ..... < 40 mg/dL Normal: ..... 40-60 mg/dL Desirable: ... > 60 mg/dL *The National Cholesterol Education Program(NCEP) 36 Reference Guidelines*: Optimal:........... <100 mg/dL Near Optimal....... 100-129 mg/dL Borderline High.... 130-159 mg/dL High............... 160-189 mg/dL Very High.......... >=190 mg/dL * Source: National Cholesterol Education Program (NCEP) 37 Note: Persistent reduction for 3 months or more in an eGFR <60 mL/min/1.73 m2 defines CKD. Patients with eGFR values >/=60 mL/min/1.73 m2 may also have CKD if evidence of persistent proteinuria is present. The original MDRD equation for estimated GFR is not valid for patients less than 18 years of age. Additional information may be found at www.kdoqi.org. 38 Values below the stated reference ranges of AST and ALT can be seen in normal populations. Clinical correlation is suggested. 39 Vitamin D deficiency has been defined by the [place] and an Endocrine Society practice guideline as a level of serum 25-OH vitamin D less than 20 ng/mL (1,2). The Endocrine Society went on to further define vitamin D insufficiency as a level between 21 and 29 ng/mL (2). 1. IOM ([place]). 2010. Dietary reference intakes for calcium and D. [place]: The National Academies Press. 2. Crow MF, Michael ESPARZA, Danny FRENCH, et al. Evaluation, treatment, and prevention of vitamin D deficiency: an Endocrine Society clinical practice guideline. JCEM. 2010; 96(7):1911-30. Performed at: RN - [facility] [address] [id number] Management Sme: Jenni Hoyt MD, Phone: [phone] 40 Z79.899 41 E78.5 E11.9 I67.9 Z12.5 R03.0 E78.5 E11.9 I67.9 Z12.5 R03.0 Z13.21 E78.5 E11.9 I67.9 Z12.5 R03.0 Z13.21 E78.5 E11.9 I67.9 Z12.5 R03.0 Z13.21 42 Reference Guidelines*: Low HDL: ..... < 40 mg/dL Normal: ..... 40-60 mg/dL Desirable: ... > 60 mg/dL *The National Cholesterol Education Program(NCEP) 43 Performed at: RN - [facility] [address] [id number] Management Sme: Jenni Hoyt MD, Phone: [phone] 44 Reference Guidelines*: Normal: ............. < 150 mg/dL Borderline High: .... 150-199 mg/dL High: ............... 200-499 mg/dL Very High: .......... > 500 mg/dL * Source: National Cholesterol Education Program (NCEP) 45 Elevated levels of HbA1c suggest the need for more aggressive treatment of glycemia. The [place] Diabetes Association recommends that a primary goal of therapy should be a HbA1c of <7% and that physicians should re-evaluate the treatment regimen in patients with HbA1c values consistently >8%. 46 Performed at: RN - [facility] [address] [id number] Management Sme: Jenni Hoyt MD, Phone: [phone] 47 THIS ASSAY IS NOT INTENDED A CANCER SCREENING TEST The concentration of PSA in a given specimen, determined with assays from different manufacturers, can vary due to differences in assay methods and reagent specificity. Values obtained from different assay methods cannot be used interchangeably. Method: TaKaDuta Chemiluminescent immunoassay. 48 Vitamin D deficiency has been defined by the [place] and an Endocrine Society practice guideline as a level of serum 25-OH vitamin D less than 20 ng/mL (1,2). The Endocrine Society went on to further define vitamin D insufficiency as a level between 21 and 29 ng/mL (2). 1. IOM ([place]). 2010. Dietary reference intakes for calcium and D. [place]: The National Academies Press. 2. Crow MF, Michael [place], Danny FRENCH, et al. Evaluation, treatment, and prevention of vitamin D deficiency: an Endocrine Society clinical practice guideline. JCEM. 2010; 96(7):1911-30. Performed at: RN - [facility] [address] [id number] Management Sme: Jenni Hoyt MD, Phone: [phone] 49 Note: Persistent reduction for 3 months or more in an eGFR <60 mL/min/1.73 m2 defines CKD. Patients with eGFR values >/=60 mL/min/1.73 m2 may also have CKD if evidence of persistent proteinuria is present. The original MDRD equation for estimated GFR is not valid for patients less than 18 years of age. Additional information may be found at www.kdoqi.org. Procedures Date Code Description Status 03/15/2018 54508 Stress Test Interpre And Report Only Completed 03/15/2018 89172 Stress Test Physician Super Only Completed 03/15/2018 56292 Myocardial Imaging Tomographic Multiple Study AT Rest Or Completed Stress 02/05/2018 31782 EKG-Tracing And Report Completed 01/29/2018 69009 EKG Interpretation And Report Only Completed 01/28/2018 44449 EKG-Tracing And Report Completed 10/06/2016 69204 Radiology, Elbow Complete Completed 10/06/2016 18121 Radiology, Elbow Complete Completed 08/11/2016 91983 EKG-Tracing And Report Completed Encounters Type Date Location Provider Dx Diagnosis Office Visit 06/01/2018 Family Medicine Praveen Foster MD M86.8x3 Other 11:[address] osteomyelitis, forearm 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 E78.5 Hyperlipidemia, unspecified Z72.0 Tobacco use R73.03 Prediabetes I26.99 Other pulmonary embolism without acute cor pulmonale Z13.6 Encounter for screening for cardiovascular disorders Office Visit 04/07/2018 9:15a Primary Care Claudio Z01.818 Encounter for other Office DUSTIN Wilson preprocedural examination M86.8x3 Other osteomyelitis, forearm F17.210 Nicotine dependence, cigarettes, uncomplicated E78.5 Hyperlipidemia, unspecified Office Visit 02/05/2018 Cardiology Bree[place] Z01.810 Encounter for 1:40p Office Ed Sarkar M.D., preprocedural [facility] cardiovascular examination 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 I73.9 Peripheral vascular disease, unspecified F17.210 Nicotine dependence, cigarettes, uncomplicated E78.5 Hyperlipidemia, unspecified Office Visit 01/22/2018 11:20a Primary Care Robb Acevedo, Z01.818 Encounter for other Office Jhonatan preprocedural examination E55.9 Vitamin D deficiency, unspecified Z79.899 Other bed bug exterminator (current) drug therapy F17.210 Nicotine dependence, cigarettes, uncomplicated M86.8x3 Other osteomyelitis, forearm R94.31 Abnormal electrocardiogram [ECG] [EKG] Z23 Encounter for immunization Office Visit 11/25/2017 Orthopaedic Tanya M86.8x3 Other 1:45p Office MD Kim osteomyelitis, forearm Office Visit 11/16/2017 Orthopaedic Martínez, M86.8x3 Other 2:00p Office MD Kim osteomyelitis, forearm F17.210 Nicotine dependence, cigarettes, uncomplicated Office Visit 10/06/2017 Orthopaedic Carol Ann Coronado, S52.035S Nondisp fx of 2:30p Office PA olecran pro w intartic extn left ulna, sequela Office Visit 09/28/2017 Primary Care Robb Acevedo I69.354 Hemiplga 11:20a Office M.D. following cerebral infrc affecting left nondom side E78.5 Hyperlipidemia, unspecified E55.9 Vitamin D deficiency, unspecified M25.522 Pain in left elbow R03.0 Elevated blood-pressure reading, w/o diagnosis of htn Z79.899 Other senior care (current) drug therapy Office Visit 06/18/2017 9:20a Primary Care Robb Acevedo I69.354 Hemiplga Office M.D. following cerebral infrc affecting left nondom side Z45.89 Encounter for adjustment and management of implanted devices I65.29 Occlusion and stenosis of unspecified carotid artery M24.542 Contracture, left hand E55.9 Vitamin D deficiency, unspecified E78.5 Hyperlipidemia, unspecified Office Visit 03/18/2017 2:20p Primary Care Robb Acevedo I67.9 Cerebrovascular Office M.D. 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 (current) drug therapy E78.5 Hyperlipidemia, unspecified I65.29 Occlusion and stenosis of unspecified carotid artery Office Visit 10/27/2016 9:20a Primary Care Robb Acevedo, I65.29 Occlusion and Office M.D. 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 disease, unspecified E78.5 Hyperlipidemia, unspecified M24.542 Contracture, left hand M25.422 Effusion, left elbow E55.9 Vitamin D deficiency, unspecified Z79.899 Other senior care (current) drug therapy Plan of Treatment 09/01/2018 - Praveen Foster MDE78.5 Hyperlipidemia, unspecifiedNew Medication: Atorvastatin Calcium 40 mg - 1 tab by mouth every day as directedNew Labs:LDL Cholesterol Profile, Scheduled: 10/25/18Glycohemoglobin A1c, Scheduled: Activated Protein C Resistance, Scheduled: 10/25/18Basic Metabolic Panel, Scheduled: 10/25/18R73.03 [id number] Encounter for immunizationImmunizations /Injections:Pneumovax FcwqziozoX08.11 Encounter for screening for malignant neoplasm of sfejfI90.0 Tobacco use
[2018-09-28 10:41] VITALS: BP 129/92
[2018-09-28] MEDS ORDERED: Tetan/Diph/Pertus SYR(Tdap)* 0.5 ML SYR(BOOSTRIX) use SYR IM ONE (11:00)
--- NOTE | 2018-09-28 11:02 | UC ---
Hand/Wrist HPI - HPI Summary HPI Summary: 53 year old male with L arm weakness due to trauma, IVC filter presents with right finger infection. Was washing car rims several days ago, noted yesterday increased pain, swelling on right index finger with increased pain, worse with movement. Patient denies prior injuries or trauma. - History Of Current Complaint Chief Complaint: [place]CS[place] Stated Complaint: RIGHT INDEX FINGER CONCERN Time Seen by Provider: 09/28/18 10:17 Hx Obtained From: Patient ?: No Onset/Duration: Sudden Onset, Lasting Days Severity Initially: Moderate Severity Currently: Moderate Pain Intensity: 8 Pain Scale Used: 0-10 Numeric Character Of Pain: Sharp, Throbbing Aggravating Factor(s): Movement, Lifting, Flexion, Extension Alleviating Factor(s): Rest Associated Signs And Symptoms: Positive: Swelling, Redness, Bruising - Allergies/Home Medications Allergies/Adverse Reactions: Allergies Allergy/AdvReac Type Severity Reaction Status Date / Time No Known Allergies Allergy Verified 09/28/18 10:44 Home Medications: Home Medications Statin 1 dose PO DAILY 09/28/18 [History Confirmed 09/28/18] PMH/Surg Hx/FS Hx/Imm Hx Previously Healthy: Yes - Surgical History Surgical History: Yes Surgery Procedure, Year, and Place: IVC filter placement-migration. ORIF left forearm and removal - Family History Known Family History: Positive: Cardiac Disease - Social History Alcohol Use: Occasionally Substance Use Type: None Smoking Status (MU): Heavy Every Day Tobacco Smoker Amount Used/How Often: 10 cigs daily x 40 years Have You Smoked in the Last Year: Yes - Immunization History Most Recent Tetanus Shot: unknown Review of Systems All Other Systems Reviewed And Are Negative: Yes Constitutional: Negative: Fever, Chills, Fatigue Skin: Positive: Other - redness, swelling right index finger Is Patient Immunocompromised?: No Physical Exam Triage Information Reviewed: Yes Appearance: Well-Appearing, No Pain Distress, Well-Nourished Vital Signs: Initial Vital Signs Temp 98 F 09/28/18 10:26 Pulse 84 09/28/18 10:26 Resp 18 09/28/18 10:26 BP 129/92 09/28/18 10:26 Pulse Ox 98 09/28/18 10:26 Vital Signs Reviewed: Yes Eyes: Positive: Conjunctiva Clear Skin: Positive: Other - right index finger with fluctuant raised area on lateral portion of nail with no drainage noted, + TTP, + discoloration, yellow, consistent with callus on lateral distal nail. no streaking. + pain with flexion/ extension of DIP, howevere non-tender over joint to palpation. Procedures - Incision and Drainage Right Distal Finger Site: right index finger, distal DIP Instrument(s): Needle - 18 Hand/Wrist Course/Dx - Course Course Of Treatment: Area cleansed with hiclens and soaked in normal saline, using 18 kayden needle puncture sound over fluctuance made, ~ 2cc of purulent and blood material expressed, sent for culture. - SOak finger in warm soapy water 3-4 times a day for the next 2-3 days for 10- 20minutes each time - Cover finger as shown x 2 days, then may use band-aid - Return in 24-48 hours if worsens or pain increases - ANtibiotics as directed for 7 days - Return with fever, chills. - Tdap given - Differential Dx/Diagnosis Differential Diagnosis/HQI/PQRI: Cellulitis Provider Diagnosis: Abscess of finger of right hand Discharge - Sign-Out/Discharge Documenting (check all that apply): Patient Departure All imaging exams completed and their final reports reviewed: No Studies - Discharge Plan Condition: Good Disposition: TRANSFER TO OB ([facility]) Prescriptions: Sulfamethox/Trimethoprim DS* [Bactrim DS 800/160 TAB*] 1 tab PO BID #14 tab Patient Education Materials: Abscess (ED) Referrals: Praveen Foster MD [Primary Care Provider] - Lupillo Vinson MD [Medical Doctor] - (Follow up if no improvement within 2-3 days ) Additional Instructions: - SOak finger in warm soapy water 3-4 times a day for the next 2-3 days for 10- 20minutes each time - Cover finger as shown x 2 days, then may use band-aid - Return in 24-48 hours if worsens or pain increases - ANtibiotics as directed for 7 days - Return with fever, chills. - Billing Disposition and Condition Condition: GOOD Disposition: Transfer to OB ([facility])
--- NOTE | 2018-10-01 07:55 | UC ---
- Progress Note Progress Note: Laboratory results come back from September 28, 2018. The culture and sensitivities come back with Staphylococcus. Patient was started on Bactrim. There is no susceptibility listed for Bactrim. Therefore we do not know if Bactrim will treat the infection successfully. Nursing to call patient and determine if he is improving. If he is improving he should continue the Bactrim. If he is not improving we will need to change the antibiotic. Course/Dx - Diagnoses Provider Diagnoses: Abscess of finger of right hand Discharge - Sign-Out/Discharge Documenting (check all that apply): Patient Departure All imaging exams completed and their final reports reviewed: No Studies - Discharge Plan Condition: Good Disposition: HOME Prescriptions: Sulfamethox/Trimethoprim DS* [Bactrim DS 800/160 TAB*] 1 tab PO BID #14 tab Patient Education Materials: Abscess (ED) Referrals: Lupillo Vinson MD [Medical Doctor] - (Follow up if no improvement within 2-3 days ) Praveen Foster MD [Primary Care Provider] - Additional Instructions: - SOak finger in warm soapy water 3-4 times a day for the next 2-3 days for 10- 20minutes each time - Cover finger as shown x 2 days, then may use band-aid - Return in 24-48 hours if worsens or pain increases - ANtibiotics as directed for 7 days - Return with fever, chills. - Billing Disposition and Condition Condition: GOOD Disposition: Home
== END 2018-09-28 11:19 | disposition home or self-care (01) ==
LOC: UCCORT 10:07
DX: L02.511 Cutaneous abscess of right hand (principal); Z23 Encounter for immunization; F17.210 Nicotine dependence, cigarettes, uncomplicated
CPT/HCPCS: 87070; 87077; 87186; 87205; 87640; 87641; 90471; 90715; 99212; G0463